=== PATIENT | female | born 1940 | race Caucasian/White ===

== ENCOUNTER 2018-07-25 11:44 | Day surgery (SDC) | payer MEDICARE, OTHER, SELFPAY ==
[2018-07-22 13:22] VITALS: BMI 30.4
[2018-07-25] VITALS (11 sets, daily range): BP systolic 108–144; BP diastolic 44–68; PULSE 81–101; RESP 10–20; TEMP 36.1–36.6; O2SAT 93–100; BMI 27.9
--- NOTE | 2018-07-25 | DI.RAD.S_ITS ---
PROCEDURE: XR SHOULDER RT MIN 2V INDICATIONS: ORIF, PROXIMAL RIGHT HUMERUS, INTRA-OPERATIVE TECHNIQUE: 4 intraoperative fluoroscopic views of the shoulder were acquired. COMPARISON: None. FINDINGS: Intraoperative fluoroscopic images of right shoulder shows reduction and internal fixation of previously noted right proximal humeral shaft fracture. Right shoulder alignment is near-anatomic. IMPRESSION: Post ORIF changes in right proximal humeral shaft with anatomic shoulder alignment. Dictated by: Pito Patton M.D. on 07/25/2018 at 16:33 Approved by: Pito Patton M.D. on 07/25/2018 at 16:35
[2018-07-25 12:13] LABS: Add Manual Diff / Slide Review NO; Basophils Percent Auto 0.8 % (0-2); Eosinophils Percent Auto 1.7 % (2-4); Hematocrit 34.2 % (36-46); Hemoglobin 11.8 g/dL (12.0-16.0); Lymphocytes Percent Auto 30.2 % (25-40); Mean Corpuscular HGB Conc 34.4 % (30-36); Mean Corpuscular Hemoglobin 31.2 PG (26-34); Mean Corpuscular Volume 90.6 fL (80-100); Monocytes Percent Auto 8.3 % (3-14); Neutrophils Absolute Auto 6100 /uL (3000-5900); Platelet Count 471 X10^3/uL (150-400); Red Blood Cell Count 3.77 X10^6/uL (4.0-5.2); Red Cell Distribution Width 15.3 % (11.6-14.8); White Blood Cell Count 10.4 X10^3/uL (4.5-11.0)
[2018-07-25 12:24] LABS: Carbon Dioxide 32 mmol/L (22-32); Chloride 104 mmol/L (98-107); HEMOLYSIS < 15 (0-50); Potassium 4.6 mmol/L (3.4-5.1); Sodium 146 mmol/L (137-145)
[2018-07-25] MEDS: LACTATED RINGERS 1,000 ML 42 ML IV ×2 (12:24→16:00)
--- NOTE | 2018-07-25 12:56 | PM.PREOP ---
Pre-operative Note Interval Note Pre-op Check: Yes History & Physical Reviewed by Physician and Yes Exam Performed Changes: No
--- NOTE | 2018-07-25 12:59 | P.OP_ITS ---
Operative Date/Time/Diagnoses Date of procedure: 07/25/18 Time of procedure: 16:08 Pre-op diagnosis: Right shoulder proximal humerus fracture Post-op diagnosis: same Procedure & Clinicians Procedure: Open reduction internal fixation right proximal humerus fracture Same procedure as scheduled: Yes Indications: The patient presents today for surgical repair of a displaced right proximal humerus fracture. The nature of the procedure including the risks and benefits, alternatives, postoperative course and expected outcome were discussed and all questions answered. Consent was obtained. Operative site confirmed and marked. Surgeon: Evin Dent Pressure Supervisor: Isacc Salazar Anesthesia Type: General and Local Operative Notes Findings: The patient's humeral head was impacted and facing superiorly. The head need to be reduced before the tuberosity could be adequately reduced. A nice reduction was obtained. Closure Type: primary Specimen(s): none sent Implants & Drains: Del Rosario and Nephew locking proximal humeral plate. Applied: implant(s) Estimated Blood Loss (mL): 100 Blood products transfused: none Procedure in detail: The patient was taken the operative suite and placed under general anesthesia. She received prophylactic antibiotics prior to surgery. She was then placed in a modified beach chair position. The arm was prepped and draped in usual sterile fashion. A deltopectoral approach was utilized. Incision was made over the anterior shoulder and dissection carried down to the muscular layer. The cephalic vein was identified and the deltopectoral interval exposed. As the fracture was evaluated could be seen at the humeral head with significantly impacted and essentially pointing superiorly once the humeral head was reduced the greater tuberosity could be nicely reduced. There did not appear to be a separate lesser tuberosity fragment. The greater tuberosity was held reduced by placing a #2 FiberWire into the rotator cuff and time that to a suture placed into the subscapularis tendon. A Del Rosario [employer] Nephew locking proximal humeral plate was then placed provisionally and checked on fluoroscopy. Once the position was adequate it was secured to the shaft with a single bicortical screw through the oval hole. Next all of the locking screws were placed into the humeral head. Position of the screws was checked on AP and lateral fluoroscopy. All screws were within the head. The most posterior inferior screw did appear to be slightly out of the cortex on the x- ray. This srew could be palpated and was not prominent. Bone quality was adequate. The remaining shaft screws were then placed. A mixture of locking and nonlocking screws were placed in the shaft. Final AP and lateral fluoroscopy showed nice position of the fracture and hardware. The wound was copiously irrigated. The skin and soft tissues were anesthetized with 20 cc of 0.5% Marcaine with epinephrine. The muscular interval was loosely closed with a few 2 0 Vicryl. The subcutaneous tissue was then closed with 2 Vicryl. The skin was then closed with 4 0 Vicryl and Steri-Strips. An Aquacel dressing was applied. The patient tolerated the procedure well and was returned to recovery room in good condition. Complications: none Condition: stable Disposition: same day surgery Plan for aftercare: Patient is discharged to home. She will use a sling for comfort. She will do daily pendulum exercises. She may slowly progress active assisted and passive range of motion activity as tolerated. Discharge medications: Forsan.
[2018-07-25] MEDS: CEFAZOLIN 2 GM/100 ML FROZ.PIGGY IV (13:11)
[2018-07-25] MEDS: BUPIVACAINE 0.5% W/ EPI (PF) VIAL 30 ML INJ (13:59)
--- NOTE | 2018-07-25 14:11 | SUR.OPER ---
Beach chair with Maquet shoulder positioner. Lower body on padded OR bed. Head in foam padded head cradle, secured with straps. Non-operative arm secured <90 degrees abduction. Pillow under knees. Safety belt at thigh. Cloth tape over blanket over lower legs.
[2018-07-25] MEDS: HYDROMORPHONE 2 MG INJ 0.5 MG IV ×2 (16:40→16:49)
[2018-07-25] MEDS: HYDROCODONE/ACET 5/325 TABLET 1 TAB PO (17:02)
--- NOTE | 2018-07-25 17:05 | SUR.PHASEI ---
assumed care from fay winslow. pt medicated with dilaudid and norco. dressing remained c/d/i.
[2018-07-25] MEDS: ALBUTEROL 2.5 MG/3 ML NEB (ADULT) INH (17:25)
[2018-07-25] MEDS: ONDANSETRON 4 MG/2 ML INJ IV (17:30)
--- NOTE | 2018-07-25 17:31 | SUR.PHASEII ---
pt brought to opd, sats low- 85-91%. pt pulled up to a better sitting position, sats unchanged. pt not sob, dr sierra notified, albuterol given via nebulizer. pt then became nauseated and zofran iv given. cecilia aponte assumed care.
--- NOTE | 2018-07-25 17:45 | SUR.PHASEII ---
ASSUMED CARE OF PT AT 1730. BEDSIDE REPORT RECEIVED FROM JOLENE RÍOS. PT AT BEDSIDE. PT SITTING UP AND DRINKING WATER. PT APPEARS COMFORTABLE AT THIS TIME AND RATES PAIN 2/10. PER PATIENT THIS IS TOLERABLE AT THE TIME. PT HAD ONE EPISODE OF EMESIS, ZOFRAN GIVEN WITH POSITIVE RESULTS. PT DENIES ANY FURTHER NAUSEA AT THIS TIME.
== END 2018-07-25 18:29 | disposition home or self-care (01) ==
PROVIDERS: Family Provider Family Medicine Geriatric Medicine; PCP Family Medicine Geriatric Medicine; Visit Provider Orthopaedic Surgery
PROC: (CPT 23615; principal; 2018-07-25 12:15)
DX: S42.291A Other displaced fracture of upper end of right humerus, initial encounter for closed fracture (principal); W19.XXXA Unspecified fall, initial encounter; M19.90 Unspecified osteoarthritis, unspecified site; I10 Essential (primary) hypertension
CPT/HCPCS: 23615; 36415; 73030; 76001; 80051; 85025; 93005; 93010; J0330; J0690; J1100; J1170; J2405; J2704; J3010; J7613

== ENCOUNTER → 2020-06-12 11:44 | Outpatient (CLI) | payer MEDICARE, OTHER, SELFPAY ==
--- NOTE | 2020-06-12 | DI.MRI.S_ITS ---
PROCEDURE: MR SHOULDER RT WO CON INDICATIONS: Adhesive capsulitis of right shoulder TECHNIQUE: Noncontrast oblique coronal T2 fast spin echo with fat saturation, oblique sagittal T1 spin echo and T2 fast spin echo with fat saturation, axial T1 spin echo and T2 fast spin echo with fat saturation through the shoulder. COMPARISON: [facility], CR, XR SHOULDER 2+ VIEWS RIGHT, 10/24/2018, 11:40. [facility], CR, XR SHOULDER 2+ VIEWS RIGHT, 04/24/2020, 11:39. [facility], CR, XR SHOULDER RT MIN 2V, 07/25/2018, 13:42. FINDINGS: Image quality: There is extensive magnetic susceptibility artifact associated with the patient's surgical hardware limiting evaluation. Rotator cuff: The supraspinatus and infraspinatus appear grossly intact, with the distal tendon insertions of the superior cuff not well visualized due to magnetic susceptibility artifact. The subscapularis and teres minor appear intact. Sagittal images demonstrate mild fatty atrophy of the supraspinatus and infraspinatus muscles. Bones and bursae: No definite acute fractures. There are postsurgical changes status post surgical repair of a proximal humeral fracture with lateral fixation plate and multiple fixation screws limiting evaluation. There is moderate acromioclavicular joint degeneration. The acromion demonstrates conventional anatomy, without an os acromiale. No discrete subacromial-subdeltoid bursal fluid is present. There is mild glenohumeral joint degeneration. Capsule and soft tissues: There is tearing of the superior, posterosuperior, and posterior labrum. In the absence of intra-articular contrast, the glenohumeral ligaments appear intact. The long head of the biceps tendon is not well visualized due to magnetic susceptibility artifact. There is a small glenohumeral joint effusion. Multiple small filling defects are demonstrated within the axillary pouch compatible with synovitis or small joint bodies. No definite periarticular edema along the axillary pouch or in the rotator interval to suggest capsulitis. IMPRESSION: 1. Postsurgical changes status post ORIF of the proximal humerus redemonstrated with associated extensive magnetic susceptibility artifact limiting evaluation. 2. Small glenohumeral joint effusion with multiple small filling defects consistent with synovitis or small joint bodies. 3. Moderate acromioclavicular and mild glenohumeral joint degeneration. 4. Mild fatty atrophy of the supraspinatus and infraspinatus muscles without definite tendon tear. Evaluation is limited distally by magnetic susceptibility artifact. 5. Tearing of the labrum as described. Dictated by: Evin So M.D. on 06/12/2020 at 16:34 Approved by: Evin So M.D. on 06/12/2020 at 16:48
== END ==
PROVIDERS: Family Provider Family Medicine Geriatric Medicine; PCP Family Medicine Geriatric Medicine; Referring Provider Orthopaedic Surgery; Visit Provider Orthopaedic Surgery
DX: M75.01 Adhesive capsulitis of right shoulder (principal); M19.011 Primary osteoarthritis, right shoulder; S43.491A Other sprain of right shoulder joint, initial encounter; M25.411 Effusion, right shoulder
CPT/HCPCS: 73221

== ENCOUNTER → 2020-06-27 12:08 | Outpatient (CLI) | payer MEDICARE, OTHER, SELFPAY ==
--- NOTE | 2020-06-27 | DI.RAD.S_ITS ---
PROCEDURE: FL JOINT INJECTION MEDIUM RT INDICATIONS: ADHESIVE CAPULITIS OF RIGHT SHOULDER COMPARISON: [facility], MR, MR SHOULDER RT WO CON, 06/12/2020, 12:14. TECHNIQUE: The indications, alternatives, benefits, risks, and complications of the procedure were explained to the patient. Written informed consent was obtained and placed in the chart. The patient was placed in an appropriate position on the fluoroscopy table, and a site was chosen for percutaneous access under fluoroscopic guidance. The site was prepped and draped in a sterile fashion. Local anesthetic was administered using a 1% lidocaine solution. A hypodermic or spinal needle was then used to access the symptomatic joint. Intra-articular location of the needle tip was confirmed by injecting a small amount of contrast, followed by steroid administration. The needle was then withdrawn, and a bandage applied to the puncture site. FINDINGS: Old internal fixation of right shoulder fracture. Joint injected: Right shoulder Medications injected: 4 mL of 40 mg/mL Kenalog and 0.5% Ropivacaine mixture. Patient's pain before injection: 3 out of 10. Patient's pain after injection: 2 out of 10. Complications: None. IMPRESSION: Successful fluoroscopically guided administration of steroid and anaesthetic solution into the right shoulder joint. Note: No joint fluid can be aspirated. Dictated by: Arian Blount M.D. on 06/27/2020 at 16:17 Approved by: Arian Blount M.D. on 06/27/2020 at 16:19
== END ==
PROVIDERS: Family Provider Family Medicine Geriatric Medicine; PCP Family Medicine; Referring Provider Orthopaedic Surgery; Visit Provider Orthopaedic Surgery
DX: M75.01 Adhesive capsulitis of right shoulder (principal)
CPT/HCPCS: 20605; 77002

== ENCOUNTER → 2021-01-01 10:01 | Outpatient (CLI) | payer MEDICARE, OTHER, SELFPAY ==
[2021-01-01 11:51] LABS: COVID19 -Nasal RAPID Negative (Negative)
== END ==
PROVIDERS: Family Provider Family Medicine Geriatric Medicine; PCP Family Medicine; Visit Provider Physician Assistant
DX: Z20.822 Contact with and (suspected) exposure to COVID-19 (principal)
CPT/HCPCS: 87635; C9803

== ENCOUNTER 2021-01-02 08:53 | Day surgery (SDC) | payer MEDICARE, OTHER, SELFPAY ==
[2021-01-02] VITALS (8 sets, daily range): BP systolic 125–201; BP diastolic 62–88; PULSE 86–97; RESP 9–16; TEMP 36.3–36.8; O2SAT 96–99; BMI 30.6
[2021-01-02] MEDS: LACTATED RINGERS 1,000 ML 42 ML IV (10:10)
--- NOTE | 2021-01-02 11:13 | PM.PREOP ---
Pre-operative Note COVID-19 COVID-19 status: Negative Result date/Date tested (Pos, Neg/Pending): 12/31/20 Interval Note History & Physical reviewed/Exam performed by Physician: Yes Changes to H&P: No
[2021-01-02] MEDS: fentaNYL 100 MCG/2 ML INJ 50 MCG IV (11:27)
[2021-01-02] MEDS: MIDAZOLAM 2 MG/2 ML VIAL IV (11:28)
[2021-01-02] MEDS: CEFAZOLIN 2 GM/100 ML FROZ.PIGGY IV (11:29)
--- NOTE | 2021-01-02 11:30 | SUR.PREOP ---
Block start time [1119] . Monitoring initiated and maintained throughout procedure. Oxygen 2l/nc and medications given per anesthesiologist instructions. Patient remained stable throughout procedure, no adverse reactions noted. Block end time [1126].
--- NOTE | 2021-01-02 12:03 | SUR.OPER ---
Beach chair with Emiliana/Latrice shoulder positioner. Lower body on padded OR bed. Head in foam padded head cradle, secured with straps. Non-operative arm secured <90 degrees abduction. Pillow under knees. Safety belt at thigh. Cloth tape over blanket over lower legs.
[2021-01-02] MEDS: BUPIVACAINE 0.5% W/ EPI (PF) 30 ML VIAL INJ (12:09)
[2021-01-02] MEDS: SODIUM CHLORIDE IRRIG SOLUTION 3,000 ML, EPINEPHrine 1 MG IRR (12:11)
--- NOTE | 2021-01-02 12:47 | PM.OP.1 ---
Operative Date/Time/Diagnoses Date of procedure: 01/02/21 Time of procedure: 11:30 Pre-op diagnosis: Right shoulder arthritis as well as impingement and possible rotator cuff tear Post-op diagnosis: same Procedure & Clinicians Procedure: Right shoulder arthroscopic extensive debridement with subacromial decompression and distal clavicle excision. Removal of loose bodies Same procedure as scheduled: Yes Indications: Right shoulder arthritis with impingement and possible rotator cuff tear. Surgeon: José Miguel Cho Bread Wrapping Machine Feeder: Mark Stout Anesthesia Type: General and Peripheral nerve block Operative Notes Findings: Significant arthritic changes to the glenohumeral joint with full-thickness loss involving about a 3rd of the humeral head. Multiple areas of loose cartilage flaps coming off the humeral head. Degenerative changes to the glenoid but no sign of any full-thickness cartilage loss. There was degenerative changes throughout the labrum as well as proximal biceps. Some loose bodies due to loose cartilage flaps in the glenohumeral joint. Partial tearing to the articular surface of rotator cuff. Small area full-thickness tearing involving the rotator cuff. None of the screws from the proximal humeral plates are intra-articular. A lot of synovitis and bursitis in the subacromial and subdeltoid space. Impingement lesions in the acromial arch. Signs of AC joint arthritis. Closure Type: primary Specimen(s): none sent Blood products transfused: none Procedure in detail: On date of service, Patient was met in the holding area. The operative site was signed and witnessed by the OR staff. The surgeries once again discussed with the patient and any remaining questions they had were answered fully. Patient was taken back to the operating theater and placed on the operating table in a supine position. Great care was taken to ensure that all bony prominences were properly padded. Patient was then placed into the beach chair position. The head and neck were properly positioned and secured. A timeout was performed verifying patient's name, procedure, and the operative site. The upper extremity was then prepped and draped in the normal sterile fashion. Previously, the bony anatomy and portal sites were marked out as well as injected with Marcaine with epinephrine. An 11 blade was used to make an incision in the posterior aspect of the shoulder. The camera was placed, and a diagnostic shoulder scope was performed. Findings listed above. Next under direct visualization, a anterior portal was made. Shaver was used to do an extensive debridement of the glenohumeral joint. Shaving of the loose cartilage flaps coming off the humeral head as well as cleaning up some of the arthritic changes to the humeral head. Shaving back down to more healthy cartilage. The labrum as well as proximal biceps was also debrided back down to more healthy tissue. There were few loose bodies in the joint which were removed as well. Next the camera was placed into the subacromial space. A lateral portal was obtained under direct visualization. A combination of the shaver and vapor wand, a debridement of the inflamed tissue as well as inflamed bursa was performed. The lateral gutter was also cleaned out. This gave us good visualization of the bursal aspect of the rotator cuff as well as the acromial arch. There was an obvious impingement lesion in the acromial arch. Next we turned our attention to the subacromial decompression. Next, a mechanical rasp was then used to do a subacromial decompression. This allowed us to convert the acromion to a type I acromial. This also allowed us to shave down the bony lesion in the acromial space. The rasp was placed into the lateral portal as well as the anterior portal in order to do a complete subacromial decompression. We next turned our attention to the distal clavicle. Using the shaver in the vapor wand we were able to clean out all the soft tissue around the distal clavicle as well as into the a.c. joint. This gave us good visualization of the arthritic changes to the distal clavicle as well as good of the a.c. joint allowing us to assess our distal clavicle excision. Of the inferior osteophytes coming off the distal clavicle. Using the mechanical rasp in the anterior portal, we were able to remove the inferior osteophytes as well as do a distal clavicle excision. The camera was then placed into the anterior portal which gave us a direct visualization of the a.c. joint allowing us to assess the distal clavicle excision. We could see the proximal aspect of the humeral plate. No sign of any implant loosening or failure. There was some tearing involving the rotator cuff more so at the supraspinatus and infraspinatus interval. Tissue was quite friable there was really no decent tendon tissue to repair. Due to this fact the torn edges were debrided back down to more healthy tissue the help with overall function and pain. Shoulder was taken through range of motion no sign of any impingement from the acromial arch or the plate. Portal sites were then closed with Monocryl and the shoulder was cleaned, dried, and dressed. Patient was taken to PACU in stable condition. Complications: none Post-operative Condition: stable Disposition: PACU Plan for aftercare: Patient will follow-up postoperative protocol for subacromial decompression
--- NOTE | 2021-01-02 13:23 | SUR.PHASEII ---
[place], states feels fine and no pain, drinking coffee and water without problems, up and ambulating gait steady, assisted to get dressed
--- NOTE | 2021-01-02 13:24 | SUR.PHASEII ---
All dc instructions given to pt along with rxs by fay Fan
== END 2021-01-02 13:25 | disposition home or self-care (01) ==
PROVIDERS: Family Provider Family Medicine Geriatric Medicine; PCP Family Medicine; Referring Provider Orthopaedic Surgery; Visit Provider Orthopaedic Surgery
PROC: (CPT 29805; principal; 2021-01-02 11:15)
DX: M19.011 Primary osteoarthritis, right shoulder (principal); S42.291D Other displaced fracture of upper end of right humerus, subsequent encounter for fracture with routine healing; M75.41 Impingement syndrome of right shoulder; M25.611 Stiffness of right shoulder, not elsewhere classified; M65.811 Other synovitis and tenosynovitis, right shoulder; M75.51 Bursitis of right shoulder; M24.011 Loose body in right shoulder; M75.111 Incomplete rotator cuff tear or rupture of right shoulder, not specified as traumatic; K21.9 Gastro-esophageal reflux disease without esophagitis
CPT/HCPCS: 29823; 29824; 29826; 64415; J0171; J0330; J0690; J1100; J2250; J2405; J2704; J3010

== ENCOUNTER → 2022-08-01 12:32 | Outpatient (CLI) | payer MEDICARE, OTHER, SELFPAY ==
--- NOTE | 2022-08-01 12:35 | DI.MRI.S_ITS ---
PROCEDURE: MR CERVICAL SPINE WO CON INDICATIONS: Cervicalgia TECHNIQUE: Noncontrast sagittal T1 spin echo and T2 fast spin echo, sagittal STIR, foraminal oblique sagittal T2 fast spin echo, and axial gradient echo or T2 fast spin echo through the cervical spine. COMPARISON: [facility] [place], CR, XR CERVICAL SPINE 6+ VIEWS, 07/28/2022, 11:07. FINDINGS: Image quality: Excellent. Alignment and Curvature: There is loss of normal cervical lordosis. 3 mm of anterolisthesis of C7 on T1. Bone Marrow: Marrow demonstrates normal overall signal. Mild reactive signal throughout the endplates of the cervical and upper thoracic spine. Spinal Cord: Visualized spinal cord has normal size and signal. No cerebellar tonsillar herniation. Paraspinous Soft Tissues: No paravertebral masses. Prevertebral soft tissues are normal in thickness. C2-C3: Congenital canal stenosis. Moderate disc desiccation. Mild diffuse disc bulge with superimposed broad-based central protrusion. Mild facet and uncovertebral hypertrophy bilaterally. Moderate to severe canal stenosis. Mild left and moderate right foraminal stenosis. C3-C4: Congenital canal stenosis. Moderate disc desiccation. Mild disc height loss. Moderate diffuse disc bulge. Moderate facet and uncovertebral hypertrophy. Severe canal stenosis. Mild cord flattening. Severe left greater than right foraminal stenosis with left greater than right C4 nerve root compression. C4-C5: Congenital canal stenosis. Moderate disc desiccation. Mild disc height loss. Moderate diffuse disc bulge. Moderate facet and uncovertebral hypertrophy bilaterally. Severe canal stenosis. Moderate cord flattening. Severe left greater than right foraminal stenosis with left greater than right C5 nerve root compression. C5-C6: Congenital canal stenosis. Moderate disc height loss and desiccation. Moderate diffuse disc bulge. Moderate facet and uncovertebral hypertrophy bilaterally. Severe canal stenosis. Mild cord flattening. Severe bilateral foraminal stenosis with bilateral C6 nerve root compression. C6-C7: Moderate disc height loss and desiccation. Moderate diffuse disc bulge with superimposed left far lateral broad-based protrusion. Congenital canal stenosis. Moderate facet and uncovertebral hypertrophy bilaterally. Severe canal stenosis. Mild cord flattening. Severe left greater than right foraminal stenosis with left greater than right C7 nerve root compression. C7-T1: Moderate disc desiccation. Mild disc height loss and diffuse disc bulge. Moderate facet and uncovertebral hypertrophy bilaterally. Moderate canal stenosis. Severe left and moderate right foraminal stenosis. Left C8 nerve root compression. IMPRESSION: 1. Diffuse congenital canal stenosis with superimposed disc and facet disease, as well as uncovertebral hypertrophy. 2. Multilevel canal stenoses, worst at C3-C4, C4-C5, C5-C6, and C6-C7, where there is associated cord flattening. 3. Multilevel foraminal stenoses, worst at C3-C4, C4-C5, C5-C6, C6-C7, and C7-T1, where there is associated intraforaminal nerve root compression. Recommend correlation with clinical symptoms to ascertain relevance of these findings. Dictated by: Shiv Gonzalez M.D. on 08/03/2022 at 12:48 Approved by: Shiv Gonzalez M.D. on 08/03/2022 at 12:52
== END ==
PROVIDERS: Family Provider Family Medicine Geriatric Medicine; PCP Family Medicine; Referring Provider Physical Medicine & Rehabilitation Pain Medicine; Visit Provider Physical Medicine & Rehabilitation Pain Medicine
DX: M54.2 Cervicalgia (principal); M48.02 Spinal stenosis, cervical region; M47.812 Spondylosis without myelopathy or radiculopathy, cervical region
CPT/HCPCS: 72141

== ENCOUNTER → 2022-12-29 13:05 | Outpatient (CLI) | payer MEDICARE, OTHER, SELFPAY ==
--- NOTE | 2022-12-29 | DI.RAD.S_ITS ---
PROCEDURE: FL SHOULDER INJECTION MR/CT RT INDICATIONS: RIGHT SHOULDER IMPINGEMENT COMPARISON: [facility], CT, CT UE RT W CON, 12/29/2022, 14:36. TECHNIQUE: The indications, alternatives, benefits, risks, and complications of the procedure were explained to the patient. Written informed consent was obtained and placed in the chart. The shoulder was examined fluoroscopically and a site for needle placement chosen for entry into the glenohumeral joint from an anterior approach. The skin was prepped and draped in a sterile fashion, and 1% lidocaine infiltrated from skin down to joint capsule. A spinal needle was inserted into the glenohumeral joint, and a small amount of iodinated contrast media injected to confirm intra-articular placement of the needle tip. This was followed by approximately 20 mL of iodinated contrast. The needle was removed and a dressing was applied. The patient was given postprocedural instructions and sent to the CT suite for imaging. FINDINGS: A single fluoroscopic spot image demonstrates intra-articular location of injected iodinated contrast. IMPRESSION: Successful fluoroscopically guided administration of iodinated contrast solution into the shoulder joint for CT arthrogram. Dictated by: Girish Vela M.D. on 12/29/2022 at 17:39 Approved by: Girish Vela M.D. on 12/29/2022 at 17:41
--- NOTE | 2022-12-29 | DI.CT.S_ITS ---
PROCEDURE: CT UE RT W CON INDICATIONS: RIGHT SHOULDER IMPINGEMENT TECHNIQUE: After the intra-articular administration of 12 mL of dilute non-ionic contrast, 1-1.5 mm thick sections acquired from the acromioclavicular joint to the inferior scapula, with coronal and sagittal reformatting. COMPARISON: None. FINDINGS: Image quality: Excellent. Bones: Moderate acromioclavicular joint osteoarthritic changes are seen with joint space narrowing, subchondral sclerosis and downward osteophyte formation depressing the musculotendinous junction of supraspinatus. There is superior migration of humeral head in relation to glenoid. Moderate to severe glenohumeral joint osteoarthritic changes are seen with significant joint space narrowing, subchondral sclerosis and prominent inferior marginal osteophyte formation. Prior surgical fixation of proximal humerus is seen with fixation plate and screws in place. No evidence of hardware loosening or failure. No acute fracture or dislocation. No suspicious intraosseous lesions. Visualized right upper ribs are intact. Soft tissues: There is full-thickness rupture of distal supraspinatus at its insertion on the humeral head with up to 4.2 cm medial retraction of torn tendon fibers to the level of acromioclavicular joint and contrast extravasating into subacromial subdeltoid bursa. Sagittal images shows moderate supraspinatus and infraspinatus muscle atrophy. No abnormal soft tissue calcifications. No gross intra-articular loose bodies. Limited evaluation of right shoulder labrum shows subtle area of contrast extension in superior anterior labrum at 12 to 1 o'clock position suggestive of superior anterior labral tear. IMPRESSION: 1. Prior fixation of proximal right humeral shaft with significant beam hardening artifacts. No gross hardware loosening or failure. 2. Moderate acromioclavicular joint osteoarthritis and moderate to severe glenohumeral joint osteoarthritis. No fracture or dislocation. No suspicious bony lesions. 3. Full-thickness rupture of distal supraspinatus at its insertion on the humeral head with up to 4.2 cm medial retraction of torn tendon fibers to the level of acromioclavicular joint. Moderate supraspinatus and infraspinatus muscle atrophy. No abnormal soft tissue calcifications. No gross intra-articular loose bodies. 4. Limited evaluation of right shoulder labrum shows suggestion of superior anterior labral tear at 12 to 1 o'clock position. Dictated by: Pito Patton M.D. on 12/29/2022 at 21:08 Approved by: Pito Patton M.D. on 12/29/2022 at 21:13
== END ==
PROVIDERS: Family Provider Family Medicine Geriatric Medicine; PCP Family Medicine; Referring Provider Orthopaedic Surgery; Visit Provider Orthopaedic Surgery
DX: M75.41 Impingement syndrome of right shoulder (principal); M19.011 Primary osteoarthritis, right shoulder
CPT/HCPCS: 23350; 73201; 77002

== ENCOUNTER 2023-02-04 08:02 | Inpatient (IN) | payer MEDICARE, OTHER, SELFPAY ==
[2023-01-25 13:59] VITALS: BMI 30.1
[2023-02-04] VITALS (17 sets, daily range): BP systolic 94–184; BP diastolic 43–88; PULSE 72–104; RESP 16–22; TEMP 36.1–36.8; O2SAT 95–99; BMI 30.1; BMI 29.5
--- NOTE | 2023-02-04 | DI.RAD.S_ITS ---
PROCEDURE: XR SHOULDER RT MIN 2V INDICATIONS: TOTAL RIGHT SHOULDER TECHNIQUE: 2 views of the shoulder were acquired. COMPARISON: [facility], , XR SHOULDER RT MIN 2V, 07/25/2018, 13:42. FINDINGS: Bones: Patient is status post right total shoulder arthroplasty. No evidence for acute hardware complication. Postsurgical alignment appears anatomic. No acute osseous abnormality seen. Soft tissues: Expected post surgical soft tissue changes. IMPRESSION: Expected postsurgical changes of right total shoulder arthroplasty. No evidence for acute hardware complication. Dictated by: Fabian Elizabeth M.D. on 02/04/2023 at 14:38 Approved by: Fabian Elizabeth M.D. on 02/04/2023 at 14:38
[2023-02-04] MEDS: LACTATED RINGERS 1,000 ML 42 ML IV ×2 (08:39→11:51)
[2023-02-04] MEDS: ACETAMINOPHEN 325 MG TABLET 975 MG PO (08:43)
[2023-02-04] MEDS: PREGABALIN 75 MG CAPSULE PO (08:43)
[2023-02-04] MEDS: CELECOXIB 200 MG CAPSULE PO (08:44)
[2023-02-04] MEDS: VANCOMYCIN 1,000 MG/200 ML PIGGYBACK 200 MG IV ×2 (08:51→20:24)
--- NOTE | 2023-02-04 08:51 | PM.PREOP ---
Pre-operative Note Interval Note History & Physical reviewed/Exam performed by Physician: Yes Changes to H&P: No
[2023-02-04] MEDS: CEFAZOLIN 2 GM/100 ML PREMIX 100 ML IV (09:52)
--- NOTE | 2023-02-04 10:24 | SUR.OPER ---
Beach chair with Emiliana/Latrice shoulder positioner. Lower body on padded OR bed. Head in foam padded head cradle, secured with straps. Non-operative arm secured with pillow underneath and tape across stomach. Pillow under knees. Safety belt at thigh. Cloth tape over blanket over lower legs.
[2023-02-04] MEDS: LIDOCAINE 1% W/EPI 20 ML INJ (10:30)
[2023-02-04 11:45] LABS: COVID19 -Nasal RAPID Negative (Negative)
--- NOTE | 2023-02-04 12:05 | PM.OP.1 ---
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 No sign of any implant loosening or failure. Rotator cuff intact. Closure Type: primary Applied: implant(s) (Size 5 stem with a small glenoid. 44 x 19 humeral head) Estimated Blood Loss (mL): 100 Procedure in detail: On date of service, Patient was met in the holding area. The operative site was signed and witnessed by the OR staff. The surgeries once again discussed with the patient and any remaining questions they had were answered fully. Patient was taken back to the operating theater and placed on the operating table in a supine position. Great care was taken to ensure that all bony prominences were properly padded. Patient was then placed into the beach chair position. The head and neck were properly positioned and secured. A timeout was performed verifying patient's name, procedure, and the operative site. The upper extremity was then prepped and draped in the normal sterile fashion. Previously, the bony anatomy and incision were marked out as well as injected with Marcaine with epinephrine. A deltopectoral approach was performed. 10 blade was used to incise the skin and fascial tissue. A deep knife was used to continue sharp dissection until the cephalic vein was visualized. The cephalic vein was dissected free allowing us to expose the deltopectoral interval. This interval was then developed. A Arora elevator was used to free up the deltoid of any scarring both superficially as well as deeply. The vein and the deltoid were taken laterally while the pectoralis was taken medially. This gave us good visualization of the strap muscles. The clavipectoral fascia was removed and the strap muscles were then retracted medially with the pectoralis. This gave us stabilization of the subscapularis. The circumflex vessels were ligated and the subscapularis was sharply excised off the lesser tuberosity and then tagged. Once the subscapularis was released we're able to dislocate the shoulder. Patient had collapse of the humeral head and fragmentation due to the avascular necrosis. We then turned our attention to the proximal humerus plate. Combination of Arora elevator and periosteal elevator was used to remove the scar tissue and fascial tissue off the plate. Rongeur and curette were used to free up the screw holes and once that was done the 11 screws were removed as well as the plate. All the screws came out in 1 piece there was no implant breakage during the removal of the screws or the plate. Next, cutting guide was placed and a saw was used to remove the humeral head. Once the head was removed it was templated. A 52 x 20 head gave us the best coverage. A starting awl was then used to find the canal and then the humerus was reamed and broached. Trial stem was placed and a variety of heads were trialed. A size 10 stem gave us the best fit. Protector placed for the osteotomy was then placed and and we turned our attention back to the subscapularis as well as the glenoid. The subscapularis was freed up and a 360? fashion. The degenerative anterior and inferior capsular tissue was removed. This was followed by removing the degenerative labral tissue from around the glenoid as well as the biceps insertion. Retractors were used to protect the axillary nerve while we remove the degenerative capsular and labral tissue. This gave us good visualization of the glenoid. Glenoid trials were used until we found the appropriate fit and curvature. A small glenoid provided the best fit. The center hole was drilled followed by reaming of the glenoid. The wound was copiously irrigated after reaming. Next the pegs were drilled and a trial glenoid was impacted into place. Once we were satisfied with the preparation of the glenoid, the final component was cemented into place. This was followed by impaction. We Return to our attention back to the humerus. The protector plate was removed and heads were trialed once again until we found the appropriate fit. Once again the 44 x 19 head provided the best coverage as well as stability to the glenohumeral joint. Trials were removed and bone tunnels were made into the humeral neck. #2 FiberWire were passed through the bone tunnels for eventual subscapularis repair. The final stem and head were impacted into place and the shoulder was reduced. It was taken through range of motion and was felt to be stable in both posterior translation as well as external and internal rotation with abduction. The subscapularis was repaired back to the lesser tuberosity through the bone tunnels. This was then reinforced with soft tissue repair. Part of the rotator interval was then closed. A drain was placed and the rest of the wound was closed in a layered fashion. The shoulder was then cleaned dried and dressed and the patient was taken to the PACU in stable condition. Patient will follow our postoperative protocol for total shoulder arthroplasty. Complications: none Post-operative Condition: stable Disposition: Acute Care Plan for aftercare: Patient will be in a sling for 6 weeks. Patient will follow our postoperative protocol for a total shoulder arthroplasty
--- NOTE | 2023-02-04 13:06 | SUR.PHASEI ---
Transferred to room 217 by Abel Gruber RN. one patient belongings bag with pt.
[2023-02-04] MEDS: LACTATED RINGERS 1,000 ML 125 ML IV (13:15)
[2023-02-04] MEDS: DOCUSATE 100 MG CAPSULE PO (20:21)
[2023-02-04] MEDS: ASPIRIN EC 325 MG TABLET PO (20:21)
[2023-02-05 03:48] VITALS: BP 117/46; PULSE 77; RESP 18; TEMP 35.9; O2SAT 96
[2023-02-05] MEDS: PANTOPRAZOLE DR 20 MG TABLET PO (05:34)
[2023-02-05 06:22] LABS: Hemoglobin 9.3 g/dL (12.0-16.0); Mean Corpuscular HGB Conc 33.1 % (30-36); Mean Corpuscular Hemoglobin 29.4 PG (26-34); Mean Corpuscular Volume 88.9 fL (80-100); Platelet Count 228 X10^3/uL (150-400); Red Blood Cell Count 3.15 X10^6/uL (4.0-5.2); Red Cell Distribution Width 14.2 % (11.6-14.8); White Blood Cell Count 12.9 X10^3/uL (4.5-11.0)
[2023-02-05 08:00] VITALS: BP 132/48; PULSE 79; RESP 17; TEMP 36.2; O2SAT 98
--- NOTE | 2023-02-05 08:26 | P.DS_ITS ---
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 No sign of any implant loosening or failure.? Rotator cuff intact. Closure Type: primary Applied: implant(s) (Size 5 stem with a small glenoid.? 44 x 19 humeral head) Estimated Blood Loss (mL): 100 Discharge Providers Provider Date of admission: 02/04/23 08:02 Discharge Date: 02/05/23 Primary care physician: Beck Boyer MD Consults: 02/04/23 12:01 Consult to Discharge Planning Routine Comment: Consult to Physical Therapy Evaluate & Treat Comment: Physician Instructions: Evaluate and Treat Discharge provider: Kassi Shaw PA-C Summary Hospital Course Discharge Diagnosis: Right humeral head avascular necrosis, s/p hardware removal and total shoulder arthroplasty Hospital Course: Ms Lo's hospital course was unremarkable. On POD# 1 she was having no pain at all and wanted to go home. She does not tolerate narcotic pain medication well and denied the need for a prescription. She was ambulating and voiding without difficulty. She had not yet been evaluated by inpt PT when I saw her; she does have outpt PT appts set up. Reports a one-time occurrence of a small amount of blood in urine; denies dysuria. Reassured that no catheter was placed during surgery. Exam Vital Signs (past 8 hours): - 02/05/23 03:48 Temperature 96.7 F L Pulse Rate 77 Respiratory Rate 18 Blood Pressure 117/46 L Pulse Oximetry 96 Oxygen Flow Rate 0 Oxygen Delivery Method Room Air Oxygen Flow Rate 0 Narrative Exam Narrative: 5/5 electrophysiology tech strength, hand intrinsics. Brisk capillary refill, sensation to touch intact throughout RUE. Aquacel dressing CDI. Objective Labs 02/05/23 05:47 Labs: Laboratory Results - last 24 hr 02/04/23 02/05/23 11:20 05:47 WBC 12.9 H RBC 3.15 L Hgb 9.3 L Hct 28.0 L MCV 88.9 MCH 29.4 MCHC 33.1 RDW 14.2 Plt Count 228 SARS-CoV-2 (PCR) Negative PFSH Medical History (Updated 01/25/23 @ 14:22 by Yolande Machado RN) Arthritis of right glenohumeral joint Back pain Bilateral breast cancer Congenital cervical spine stenosis GERD (gastroesophageal reflux disease) Hearing impaired History of COVID-19 (02/2022) History of trigger finger HTN (hypertension) Humerus fracture Hx of dysmenorrhea Migraine headache Osteoarthritis Post-traumatic stiff shoulder, right Rosacea 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 Surgical History (Updated 12/27/20 @ 17:04 by Lashawn Oneil RN) History of arthroplasty of left knee History of arthroplasty of right knee History of bilateral mastectomy History of bilateral tubal ligation History of hysterectomy History of lumbar laminectomy Hx of appendectomy Hx of cholecystectomy S/P trigger finger release Social History household members: spouse Smoking Status: Never smoker alcohol intake: current Discharge Assessment & Plan Assessment and Plan Assessment: 1) Right humeral head avascular necrosis, s/p hardware removal and total shoulder arthroplasty 2) Anemia d/t expected post-surgical blood loss Plan of Treatment: 1) D/c after PT if PT agrees. Outpt PT as scheduled w/ standard TSA protocol, ASA 81 mg BID x 4 weeks for VTE prophylaxis, f/u in office in 2 weeks. 2) VSS, pt making urine, asymptomatic. No intervention needed at this time. Discharge Plan Discharge Plan Patient Disposition: Home Discharge orders & Medications Prescriptions: New aspirin 81 mg Tablet,Delayed Release (Dr/Ec) 81 mg PO BID Qty: 1 0RF Rx Instructions: BID x 4 weeks Continued eletriptan [Relpax] 20 mg Tablet 20 mg PO Q2-4H PRN (Reason: headache) Qty: 0 omega 1-mhn-ina-fish oil [Fish Oil] 1,000 mg (120 mg-180 mg) Capsule 1,200 cap PO DAILY Qty: 0 [CALTRATE W/D] 600 mg PO QDAY Qty: 0 omeprazole 10 mg Capsule,Delayed Release(Dr/Ec) 5 mg PO DAILY Rx Instructions: Before a meal fljvqziumeny-hprunpru-runoow Tablet 1 tab PO DAILY azelaic acid 15 % gel 1 applic TOPICAL BID Vitamin C 1,000 mg Tablet Extended Release 1,000 mg PO DAILY cholecalciferol (vitamin D3) [Vitamin D3] 50 mcg (2,000 unit) Tablet 50 mcg PO DAILY Culturelle 10 billion cell Capsule 1 cap PO DAILY Discontinued aspirin 325 mg Tablet 325 mg PO BEDTIME Follow up/Referrals: Beck Boyer MD [Primary Care Provider] - José Miguel Cho MD [Physician] - As previously scheduled (Follow up w/ Kassi Shaw PA-C, on 02/19/2023 @ 1:00 pm at [facility].) Diet/Activity/Treatments Diet: Diet as Tolerated Activity: Start PT 3-7 days after surgery w/ total shoulder arthroplasty protocol. Sling should be worn during the day when active and always at night for the first 6 weeks. No active shoulder motion for 4 weeks. Pendulum exercises ok. Cold/Heat Therapy: Ice for up to 20 minutes at a time, 3 times/day as needed for pain. Skin/Wound/Dressing Care Report to your healthcare provider any signs of infection, such as:: chills, fever, night sweats, unusual drainage and unusual redness Dressing: May shower. Leave Aquacel dressing in place until follow up in office. Call the office if the dressing becomes saturated inside. Visit Report/Discharge Packet Instructions: DI for Prescription Opioid Use, DI for Shoulder Replacement Stand Alone Forms: Patient Portal/API, Stroke Signs & Symptoms, Surgery Discharge Discharge Data Primary Care Provider: Beck Boyer Quality VTE Deep Vein Thrombosis/Pulmonary Embolism Present on Admission: No
--- NOTE | 2023-02-05 09:34 | CM.DANOTE ---
Patient is an 83 yo female who was admitted on02/04/23 for removal of hardware/revision. Pt has [employer] and [employer] for insurance and her PCP is Dr. Beck Boyer. EMR was reviewed. Per Ortho, pt tolerated procedure well and likely can d/c home today after PT eval. PT ordered and pending for this AM. SW met bedside with pt and explained role and she confirms she lives [place] with her spouse and her adult Dtr is local and supportive and they are her DPOAs. Pt is active and independent at baseline and denies DME for ambulation and still drives. Pt denies any hx of HH or SNF and does not anticipate any needs at d/c. [place] about 1200 and they are planning to catch the [address] [place]. SW updated PT and they kindly will prioritize pt and SW updated BELT CUTTER regarding priority boarding pass for [address]. Plan: SW to follow for PT eval this AM to confirm safe plan of home via Dtr POV for the [address] back to [facility] and any further identified needs. JENNY Luther Discharge Planning/Care Management CM Discharge Assessment Start: 02/05/23 09:33 Freq: Status: Active Protocol: Document 02/05/23 09:33 BF (Rec: 02/05/23 09:34 [id number]) Discharge Planning Assessment Assigned Corrugated Box Machine Operator JENNY Brown DPOA/Assigned Designee Name spouse Contact Information [phone] Advance Directives? Yes: DPOA on file Advance Directives on File Yes History Provided By Patient,Medical Record Has Patient been admitted in last 30 No days? Prior Living Arrangements House Household Members spouse Type of transporation used prior to Drives own vehicle admit Independent with ADL's Yes Is patient alert and oriented? Yes Caregiver for Another No DME Already Rented / Owned FWW / Walker Patient/Family Preference OP PT Therapy Barriers to Discharge No Discharge Plan Home Community Services Physical Therapy Transportation Arrangement [place] home to [facility] [place] [address] Referrals Initiated None needed Whiteboard Updated in Patient Room with Yes name and ext. # of Corrugated Box Machine Operator Review Status In Process Please Provide Date Initial DC 02/05/23 Assessment Was Performed Next Review Type Continued Stay Review Pre-Anesthesia Assessment Start: 01/25/23 13:59 Freq: Status: Complete Protocol: Document 01/25/23 13:59 [facility] (Rec: 01/25/23 14:22 [facility] [id number]) Pre-Anesthesia Assessment Preferred Name Shivani Patient Information Reviewed Via Phone Assessment Assessment Completed With Patient Diagnostic Results BMP/CMP,CBC,EKG Comment Outside labs/EKG scanned Primary Care Provider Beck Boyer Seen Specialist in Last 12 Months Yes Specialist Seen Orthopedist,Other Comment Neurosurgeon Primary Language Brazilian Preferred Language Brazilian System Software Programmer Required No Height 160.02 cm Weight 77.111 kg Body Mass Index (BMI) 30.1 Hearing Ability Hearing Impaired,Use of Hearing Aid Visual Assist Glasses Dentition Type Teeth, Natural Present Barriers to Learning None Hx Anesthesia Reactions No Hx Family Anesthesia Reaction No Hx Malignant Hyperthermia No Hx Blood Transfusions No Anesthesia Review Requested No Fleet Operations Manager No alcohol intake current alcohol intake frequency holidays/special occasions only Smoking Status Never smoker Substance Use Type does not use Pain Present Pain Reported Musculoskeletal Symptoms Joint Pain,Limited Range of Motion,Neck Pain History of Falling (Recent or History of No ) Patient is completely paralyzed or No completely immobile Mental Status Oriented to own ability Is patient on oxygen? No Does patient have ARAUJO/SOB No Hx Sleep Apnea No CPAP/BIPAP use not prescribed Suspected Sleep Apnea No Currently Taking a Beta Bo No Can You Climb a Flight of Stairs Without Yes SOB Hx Chest Pain No Hx SOB No Hx Syncope or Dizziness No Anti-Coagulant Therapy No Has a Industrial Conveyor Belt Repairer No Cardiac Testing No Hx Pacemaker/ICD No Pacemaker Rep Required? No Cardiac Clearance Received Not Applicable Diet Type At Home Regular,Gluten Free Dysphagia No Gastrointestinal Symptoms Reflux Urinary Catheter Present No Hx Urinary Self Catheterization No Diabetes No Patient No Lactating No Hx Drug Resistant Organism No Presence of External or Internal Medical Yes: BL KNEE REPLACEMENT, Devices METAL IN RIGHT SHOULDER, CATARACTS BL EYES, BREAST IMP Have you had any close contact with No someone diagnosed with COVID-19? Received a COVID vaccine? Yes Received all doses? Yes Marital Status Lives With spouse Current Living Arrangements House Number of Floors (Floors) Two Floors Support System Child/Children,Spouse Does the Patient Have Assistance After Yes: Daughter will also stay Surgery with pt to assist, has dementia Patient Discharge Plan Description Return Home Comment Pt advised overnight length of stay per surgeon Additional comment Lives on [facility] Feels Safe in Current Environment Yes Been Physically Hurt or Threatened By a No Person in Current Environment Do you have thoughts of harming yourself None or others? Are you currently considering suicide? No Do you have a plan to hurt yourself or No Plan others? Do You Have Any Spiritual Beliefs That No May Affect Your HC Choices? Do You Have Any Cultural Practices That No May Affect Your HC Choices? Comment Faith Who Can We Speak to About Patient's Care Family, friends Identifying Code for Release of Patient Declines to issue Information Health Care Proxy/Next of Kin Pili () Jessi ( daughter) Akiko (daughter) Health Care Proxy Phone Number Pili: [phone] Jessi : [phone] Akiko: Emergency Contact Name Pili () Jessi ( daughter) Akiko (daughter) Emergency Contact Phone Number Pili: [phone] Jessi : [phone] Akiko: Advance Directives? Yes: DPOA on file Advance Directives on File Yes Power of Chore Worker Yes: On file Power of Chore Worker Name PILI RAJIV OMALLEY Power of Chore Worker PAC Instructions Do not shave/clip surgical site,Durable medical equipment ,Medications to take/avoid, Nasal antibiotic,No ETOH/ petroleum product on skin DOS, NPO,Pre-surgical wash,Sensory aids,Sturdy shoes/comfortable clothes,Do not bring valuables and remove jewelry
--- NOTE | 2023-02-05 09:45 | PT.IIE ---
Current Diagnoses Idiopathic aseptic necrosis of right humerus (02/04/23) Surgery Performed Operation Date: 02/04/23 10:00 Actual Procedures p shoulder removal of proximal humerus plate, Total Shoulder Arthroplasty(Right) - José Miguel Cho MD Surgical History (Last Updated 12/27/20 @ 17:04 by Lashawn Oneil, JOLENE) History of arthroplasty of left knee History of arthroplasty of right knee History of bilateral mastectomy History of bilateral tubal ligation History of hysterectomy History of lumbar laminectomy Hx of appendectomy Hx of cholecystectomy S/P trigger finger release Medical History (Last Updated 01/25/23 @ 14:22 by Yolande Machado RN) Arthritis of right glenohumeral joint Back pain Bilateral breast cancer Congenital cervical spine stenosis GERD (gastroesophageal reflux disease) Hearing impaired History of COVID-19 (02/2022) History of trigger finger HTN (hypertension) Humerus fracture Hx of dysmenorrhea Migraine headache Osteoarthritis Post-traumatic stiff shoulder, right Rosacea 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 Physical Therapy Inpatient Evaluation/Re-Eval M1 PT/OT-IP Prior Functional Status Start: 02/05/23 11:59 Freq: NEEDED Status: Active Protocol: Document 02/05/23 09:45 DLM (Rec: 02/05/23 12:27 DLM [id number]) Medical Review Prior Functional Status Medical History Reviewed Yes Diet/Fluid Consistency Regular Communication WNL, glasses Mobility and Gait Independent Activities of Daily Living and IADL's Indepedent Social History Household Members spouse Living Arrangements House Number of Floors (Floors) One Floor Home Environment High Toilet,Walk in Shower, Built-In Shower Seat Home Equipment Front Wheel Walker Additional Social History Comment Daughter plans to help at discharge M2 PT-IP Current Condition Start: 02/05/23 11:59 Freq: NEEDED Status: Active Protocol: Document 02/05/23 09:45 DLM (Rec: 02/05/23 12:27 DLM [id number]) Physical Therapy Current Condition Current Condition Evaluation Date 02/05/23 Treatment Diagnosis right TSA, impaired mobility/ gait Onset Date 02/05/23 M3 PT-IP Subjective Start: 02/05/23 11:59 Freq: NEEDED Status: Active Protocol: Document 02/05/23 09:45 DLM (Rec: 02/05/23 12:27 DLM [id number]) Subjective Physical Therapy Visit Type Type Initial Evaluation Visit Start Time 09:10 Visit Stop Time 09:45 Total Visit Minutes 35 Number of POM[employer] Visits 0 Physical Therapy Visit Comments Patient Comments She feels like she can go home today Patient Goals Discharge home Therapy Pain Assessment Pain When Pain Assessed At Rest Pain Present Pain Present Denied Pain M4 PT-IP Mobility and Gait Start: 02/05/23 11:59 Freq: NEEDED Status: Active Protocol: Document 02/05/23 09:45 DLM (Rec: 02/05/23 12:27 DLM [id number]) PT-Bed Mobility Assessment Supine to Sit Supine to Sit Independent Sit to Supine Sit to Supine Independent Scooting Scooting to Edge of Bed Independent PT-Transfer Assessment Sit to and From Stand Sit to and from Stand Independent Equipment Transfer Assistive Device Gait Belt Transfers Transfer Destination Bed,Chair Transfer Technique Stand Step Pivot Transfer Ability Level of Assist Standby Assistance Comments Mobility Comments Pt left up in recliner with needs close including call light. Gait Assessment Gait Gait Assistance Required: Standby Assistance Distance (Feet) 150 Assistive Devices Assistive Device Gait Belt Factors Limiting Gait Function Factors Limiting Gait Function Decreased Activity Tolerance, Decreased Strength,Limited Range of Motion Comments Gait Comments She demonstrates a safe gait pattern without device, she got light headed after gait/ stairs which resolved with seated rest break. BP 155/67 and HR 97 Stair Climbing Assessment Evaluation Level of Assist On Stairs Standby Assistance Devices Stair Climbing Assistive Devices Left Railing Technique/Endurance Stair Climbing Direction Ascend and Descend Stair Climbing Technique Step Over Step Number of Steps Climbed 3 Query Text: Stair Climbing Set # Repetitions (reps) 1 PT-Balance Assessment Sitting Balance and Reactions Static Sitting Balance Ability Normal Dynamic Sitting Balance Ability Normal Standing Balance and Reactions Static Standing Balance Ability Good Dynamic Standing Balance Ability Good Device Used none M5 PT-IP Objective Assessments Start: 02/05/23 11:59 Freq: NEEDED Status: Active Protocol: Document 02/05/23 09:45 DLM (Rec: 02/05/23 12:27 DLM [id number]) Orientation Orientation/Cognition Level of Alertness Alert Orientation Name,Age,Birthday,Month,Date, Year,Day of Week,Place, Situation Language Function Ability No Deficits Noted Safety Awareness Understands Safety Issues Memory Description No Deficits Noted Gross Range of Motion Upper Extremity ROM Assessment Right Impaired Impairments post-op TSA, no functional use of shoulder, elbow has mild tightness/soreness with full extension, can move wrist/hand WFL Lower Extremity ROM Assessment Within Functional Limits Strength Upper Extremity Strength Assessment Right Impaired Shoulder no use post-op, can not hangs Elbow can move with assist Wrist moving actively Hand moving actively Lower Extremity Strength Assessment Within Functional Limits Coordination Assessment Gross Coordination Gross Coordination WNL Sensation Assessment Comments Sensation Comments no numbness reported in her right hand post-op, she reports no shoulder pain Muscle Tone Muscle Tone WNL Yes M6 PT-IP Treatment Start: 02/05/23 11:59 Freq: NEEDED Status: Active Protocol: Document 02/05/23 09:45 DLM (Rec: 02/05/23 12:27 DLM [id number]) Physical Therapy Treatment Exercises Exercises Shoulder Pendulums,Elbow Flexion/Extension,Wrist ROM, Hand ROM Education Education Provided Safety Other Treatments Other Treatment Performed no family present this visit, education completed with pt Notified nursing staff of pt's light-headness when up moving M7 PT-IP Assessment and Plan Start: 02/05/23 11:59 Freq: NEEDED Status: Active Protocol: Document 02/05/23 09:45 DLM (Rec: 02/05/23 12:27 DLM [id number]) PT Summary Assessment and Plan Potential Rehabilitation Potential Good Status of Condition at Evaluation Evolving Summary Impairments ROM,Strength,Bed Mobility, Transfers,Gait,Activity Tolerance Assessment Summary Jocelyn is alert and resting in bed. She reports having a recliner she can use as needed at home. She was able to get out of a flat bed today but with increased effort since she has to get out on right side of bed. She demonstrates good balance during gait without a device. She was able to go up/downn stairs with a rail. She verbalizes good awareness of her post-op precautions. Pt was left up in the recliner. She has decreased activity tolerance this visit and had some light-headedness when up moving that resolves with seated rest breaks. No drop in BP noted this visit. She appears to be safe to discharge home when medically stable. Requested nursing monitor her for light- headedness during activity to ensure this resolves before discharge home. Frequency of Treatment Frequency Of Treatment Discharge Treatment Plan Other Recommendations and Next Treatment training completed this visit Focus Precautions Shoulder Precautions Sling,Pendulums Recommendations To Nursing Amount of Assist Needed Standby Assistance Discharge Recommendations PT Discharge Recommendations Home with Assistance Other Discharge Recommendations has Daughter and Spouse to assist her at home plans to take 2:00 ferr home Transportation Needs at Discharge Private Vehicle
[2023-02-05] MEDS: ASCORBIC ACID 500 MG TABLET 1000 MG PO (10:02)
[2023-02-05] MEDS: CALCIUM CARBONATE 500 MG TAB PO (10:02)
[2023-02-05] MEDS: CHOLECALCIFEROL (VITAMIN D3) 1,000 UNIT TABLET 2000 UNIT PO (10:02)
[2023-02-05] MEDS: VIT C/E/ZN/COPPR/LUTEIN/ZEAXAN CAPSULE 1 CAP PO (10:02)
[2023-02-05] MEDS: FISH OIL 1,000 MG CAPSULE 1000 MG PO (10:02)
[2023-02-05] MEDS: DOCUSATE 100 MG CAPSULE PO (10:02)
[2023-02-05] MEDS: ASPIRIN EC 81 MG TABLET PO (10:02)
--- NOTE | 2023-02-05 12:30 | PC.NURSE ---
Pt discharged home at 1230, escorted off floor in wheelchair, accompanied by daughter and hospital staff. IV and drain removed, discharge teaching provided including medication regimen, wound care, change in symptoms, and follow up appointments. Questions answered. Patient left the floor with all belongings.
== END 2023-02-05 12:32 | disposition home or self-care (01) | DRG 483 ==
PROVIDERS: Admitting Provider Orthopaedic Surgery; Family Provider Family Medicine Geriatric Medicine; PCP Family Medicine; Referring Provider Orthopaedic Surgery; Visit Provider Orthopaedic Surgery
PROC: 0RQJ0ZZ Repair Right Shoulder Joint, Open Approach (ICD-10-PCS; CPT 23472; principal; 2023-02-04 10:00)
DX: M87.021 Idiopathic aseptic necrosis of right humerus (principal); K21.9 Gastro-esophageal reflux disease without esophagitis; G43.909 Migraine, unspecified, not intractable, without status migrainosus; Z20.822 Contact with and (suspected) exposure to COVID-19
CPT/HCPCS: 36415; 64415; 73030; 85027; 87635; 97162; C1776; C9803; A9270; J0690; J1100; J2250; J2405; J2704; J3010